=== PATIENT | female | born 1965 | race African-American/Black ===

== ENCOUNTER 2016-03-20 13:52 | Emergency (ER) | payer BC, MEDICARE ==
[2016-03-20 14:01] VITALS: TEMP 102.8; BMI 36.7
--- NOTE | 2016-03-20 14:16 | EDPRACDOC ---
<Leigh Dee Henry - Last Filed: 03/20/16 16:46> - General Information Information Source: Patient Mode Of Arrival: Car - History of Present Illness HPI: FEVER, BODY ACHES, MALAISE, HEADACHE, THINKS ALLERGIC REACTION TO TETANUS/ DIPTHERIA SHOT IN RIGHT ARM YESTERDAY. SIMILAR BUT NOT BAD REACTION IN 2007. PT HAS H/O CROHN'S, CHRONIC ABD PAIN. NO NEW PAIN. + N/V. Exposure occurred: this am <Juan Chacko - Last Filed: 03/21/16 07:26> - General Information Chief Complaint: Allergic Reaction Stated Complaint: ALLERGIC REACTION TO MED Time Seen by Provider: 03/20/16 14:03 Home Medications: Home Medications CYANOCOBALAMIN (Vitamin B-12) [Vitamin B-12 (cyanocobalamin)] 1,000 mcg IJ .PRN PRN 07/09/12 Mesalamine [Pentasa] 1,000 mg PO QID 07/09/12 Metformin HCl [Metformin HCl ER] 500 mg PO BID 07/09/12 Promethazine [Phenergan] 25 mg PO DAILY 07/09/12 Rosuvastatin Calcium [Crestor] 10 mg PO DAILY 07/09/12 Amitriptyline HCl [Elavil] 25 mg PO HS 11/08/14 Cholecalciferol (Vitamin D3) [Vitamin D3] 1,000 unit PO DAILY 11/08/14 Fish Oil/Dha/Epa [Fish Oil 1,200 mg Fish Oil] 2 tab PO DAILY 11/08/14 Folic Acid/Vitamin B Comp W-C [Super B-Complex Folic-Vit C Tb] 400 mcg PO DAILY 11/08/14 Hydrochlorothiazide 25 mg PO DAILY 11/08/14 Hydrocodone Bit/Acetaminophen [[place] 5-325 Tablet] 1 each PO BID 11/08/14 Lorazepam [Ativan] 0.5 mg PO BID 11/08/14 Metoclopramide HCl [Reglan] 10 mg PO BID 11/08/14 Mouthwash [Magic Mouthwash] 5 ml PO QHS 11/08/14 Ondansetron [Zofran Odt] 8 mg PO DAILY 11/08/14 Pantoprazole Sodium [Protonix] 40 mg PO BID 11/08/14 Pediatric Multivit Comb #25/FA [[place] Multivit Chew Tab] 600 mcg PO DAILY 11/08/14 Phenobarb/Hyoscy/Atropine/Scop [ Elixir] 2 tsp PO DAILY 11/08/14 Phenylephrine HCl/[place] Butter [Preparation H Suppository] 1 each RC QHS Ranitidine HCl [Zantac] 300 mg PO QHS 11/08/14 Sucralfate [Carafate] 10 ml PO DAILY PRN 11/08/14 Ciprofloxacin HCl [Cipro] 500 mg PO BID #14 tab 11/17/14 Hydroxyzine Pamoate [Vistaril] 25 mg PO Q6 PRN #20 capsule 11/17/14 Ranitidine [Zantac] 150 mg PO BID #14 tablet 11/17/14 Oxycodone Immediate Release [Oxycodone Immediate Release (OxyIR)] 5 - 10 mg PO Q4H PRN #20 tab 03/20/16 Allergies/Adverse Reactions: Allergies Allergy/AdvReac Type Severity Reaction Status Date / Time aspirin AdvReac Unknown Unknown/See Verified 11/08/14 18:56 Comments esomeprazole magnesium AdvReac Unknown Unknown/See Verified 11/08/14 18:56 [From Nexium] Comments ibuprofen [From Advil] AdvReac Unknown Unknown/See Verified 11/08/14 18:56 Comments infliximab [From Remicade] AdvReac Unknown Unknown/See Verified 11/08/14 18:56 Comments lansoprazole [From Prevacid] AdvReac Unknown Unknown/See Verified 11/08/14 18:56 Comments meperidine HCl [From Demerol] AdvReac Unknown Hypotension Verified 11/08/14 18: 56 tetracycline [Tetracycline] AdvReac Unknown Rash-Genera Verified 11/08/14 18:56 lized tizanidine [Tizanidine] AdvReac Unknown Rash-Genera Verified 11/08/14 18:56 lized ED Past Medical History - History Reviewed Yes Nurses notes reviewed and agree except as marked - Patient Medical History Neurological History: Denies: Cerebrovascular Accident, Seizures, Dementia Cardiac History: Reports: Hypercholesterolemia. Denies: Coronary Artery Disease , Atrial Fibrillation, Hypertension, Congestive Heart Failure, Heart Attack, Cardiac Catheterization, CABG, Internal Defibrillator, Pacemaker Respiratory History: Denies: Asthma, COPD, Bronchitis, Asbestosis, Aspiration Pneumonia, Cough, Chronic Bronchitis, Pneumonia GI/ History: Reports: Gastroesophageal Reflux, IBD (crohns). Denies: Urinary Tract Infection, Kidney Stones, Liver Failure, Ulcer Musculoskeletal History: Denies: Arthritis Psychological History: Denies: Depression, Anxiety, Schizophrenia Systemic History: Reports: Diabetes. Denies: Cancer, Anemia, Hyperthyroidism, Hypothyroidism, HIV Surgical History: Reports: Appendectomy. Denies: CABG, Hysterectomy, Angioplasty, Cardiac Catheterization, Hernia Surgery, Other - Family Medical History Denies: Hypertension, Diabetes, Cancer, Stroke, Cardiac Disorders, Respiratory Disorders, Renal Disease, Blood Disorders - Social Medical History Smoking Status: Never smoker <Juan Chacko - Last Filed: 03/21/16 07:26> EDM Review of Systems - Review of Systems ROS Negative Except as Marked: Yes All systems reviewed and were negative except as marked <Juan Chacko - Last Filed: 03/21/16 07:26> - Physical Exam Last recorded Vital Signs: Last Vital Signs Temp 102.8 F H 03/20/16 13:58 Pulse 112 03/20/16 15:43 Resp 18 03/20/16 15:43 BP 142/70 03/20/16 15:43 Pulse Ox 96 03/20/16 15:43 Oxygen Pulse Oxygen Saturation 96 O2 Device Room Air Oxygen Flow Rate Fraction of Inspired Oxygen ( FIO2) <Leigh Dee - Last Filed: 03/20/16 16:46> - Physical Exam Constitutional: Alert (Awake), Other (APPEARS UNCOMFORTABLE.) Oriented to: Time, Person, Place Last recorded Vital Signs: Last Vital Signs Temp 102.8 F H 03/20/16 13:58 Pulse 144 H 03/20/16 13:58 Resp 22 03/20/16 13:58 BP 156/101 H 03/20/16 13:58 Pulse Ox 99 03/20/16 13:58 Oxygen Pulse Oxygen Saturation 99 O2 Device Room Air Oxygen Flow Rate Fraction of Inspired Oxygen ( FIO2) - HEENT Head: Normal ( normocephalic) Eye Exam: Normal (PERRL, EOMI, Sclera white) Oropharynx: Normal (Pharynx:Moist without exudate,Gums-no swelling) Nose: No Symptoms Reported (septum midline) Neck: Normal (FROM, trachea at midline) - Respiratory/Cardiovascular Respiratory: Normal - CTA (BBS clear to auscultation without adventitious sounds ) Cardiovascular: Normal (RRR without murmur, gallop or rub) - GI Auscultation: Normal (NABS) Palpation: Normal (Soft,No rebound or guarding, non distended) Tenderness: Diffuse, Mild Marroquin's Sign: Negative - Musculoskeletal Back: Normal (Non-Tender) Extremities: Normal (Normal tone, Pulses 2+ No cyanosis or edema, FROM) Musculoskeletal Comment: HYPERSENSITIVE TO TOUCH ALL OVER BODY. - Integumentary Skin: Normal, Warm, Dry Lymphatics: Normal (no adenopathy) - Neurologic Memory Impaired: Normal Motor Function: Normal (Normal tone, Pulses 2+ No cyanosis or edema, FROM) Cranial Nerve: Normal (CN II-X11 intact sensation, strength 5/5) Cerebellar: Normal Mood Description: Normal Perception: Normal <Juan Chacko - Last Filed: 03/21/16 07:26> - Re-evaluation Re-evaluation 3 Re-evaluation Time: 16:46 AMBULATING EASILY. GENERALIZED / NON FOCAL PAIN General: Pleasant FEMALE, No acute distress. Neuro: Alert Oriented, calm and cooperative HEENT: Normocephalic atraumatic. Sclerae nonicteric. Extraocular movements intact. Oral mucosa pink and moist. Neck: Supple. Nontender. Good range of motion. No masses. Trachea is midline. No cervical adenopathy. Lungs: Clear to auscultation. No rhonchi or wheezing. Heart: Regular rate and rhythm. No murmur. Abdomen: Soft, nontender, nondistended. No hepatosplenomegaly. No abdominal wall defects or masses. No guarding or rebound. Extremities: no cyanosis clubbing or edema. No palpable deformities. Skin: Warm and dry, no rashes FEVER AND LACTIC ACID ELEVATED, BUT NO REAL SOURCE OF INFECTION OR SEPSIS. OUTPT CARE WARRANTED. PT HAS H/O CHRONIC PAIN, ON VICODIN AND VALIUM CHRONICALLY. WILL ADD OXY FOR SHORT PERIOD. I SUSPECT PT HAS VIRAL SYNDROME THAT IS PREVALENT IN THE COMMUNITY. - Results 03/20/16 14:20 03/20/16 14:20 WBC 10.7 xk/uL (3.8-10.8) 03/20/16 14:20 RBC 4.94 xM/uL (4.20-5.40) 03/20/16 14:20 Hgb 12.8 g/dL (12.0-16.0) 03/20/16 14:20 Hct 39.7 % (36-47) 03/20/16 14:20 MCV 80 fL (81-99) L 03/20/16 14:20 MCH 26.0 pg (27-32) L 03/20/16 14:20 MCHC 32.3 g/dl (33-36) L 03/20/16 14:20 RDW 15.2 % (11.5-14.5) H 03/20/16 14:20 Plt Count 258 xk/uL (130-400) 03/20/16 14:20 MPV 7.6 fL (7.4-10.4) 03/20/16 14:20 Neut % (Auto) 75.1 % (45-76) 03/20/16 14:20 Lymph % (Auto) 15.9 % (17-44) L 03/20/16 14:20 [place] % (Auto) 7.5 % (3-10) 03/20/16 14:20 Eos % (Auto) 0.9 % (0-5) 03/20/16 14:20 Baso % (Auto) 0.6 % (0-2) 03/20/16 14:20 Absolute Neuts (auto) 8.03 xk/uL (1.7-8.2) 03/20/16 14:20 Absolute Lymphs (auto) 1.61 xk/uL (0.65-4.75) 03/20/16 14:20 Sodium 142 mEq/L (137-146) 03/20/16 14:20 Potassium 3.4 mEq/L (3.5-5.1) L 03/20/16 14:20 Chloride 96 mEq/L (98-107) L 03/20/16 14:20 Carbon Dioxide 28 mMOL/L (22-33) 03/20/16 14:20 Anion Gap 21 mEq/L (8-16) H 03/20/16 14:20 BUN 11 MG/DL (7-17) 03/20/16 14:20 Creatinine 1.00 MG/DL (0.52-1.04) 03/20/16 14:20 Estimated GFR (MDRD) > 60 mL/min (>=60) 03/20/16 14:20 Glucose 118 MG/DL (70-99) H 03/20/16 14:20 Calculated Osmolality 273 MOs/Kg (270-290) 03/20/16 14:20 Lactic Acid 3.2 mEq/L (0.7-2.1) H 03/20/16 14:20 Calcium 10.0 MG/DL (8.4-10.2) 03/20/16 14:20 Total Bilirubin 0.5 MG/DL (0.2-1.3) 03/20/16 14:20 AST 40 IU/L (14-36) H 03/20/16 14:20 ALT 52 IU/L (9-52) 03/20/16 14:20 Alkaline Phosphatase 78 IU/L (38-126) 03/20/16 14:20 Total Protein 9.2 G/DL (6.3-8.2) H 03/20/16 14:20 Albumin 5.1 G/DL (3.5-5.0) H 03/20/16 14:20 Microbiology 03/20/16 14:20 Influenza Type A Antigen Screen - Final Nasal Washing/Aspirate Or Swab NEGATIVE Please note: A NEGATIVE result does not exclude an influenza virus infection. It is a presumptive result and, if required, confirmation should be done using either a virus culture or an FDA-cleared influenza A&B molecular assay. ("NORMAL" value = "NEGATIVE".) Influenza Type B Antigen Screen - Final NEGATIVE Please note: A NEGATIVE result does not exclude an influenza virus infection. It is a presumptive result and, if required, confirmation should be done using either a virus culture or an FDA-cleared influenza A&B molecular assay. ("NORMAL" value = "NEGATIVE".) 03/20/16 14:20 Group A Streptococcus Rapid Screen - Final Throat - Rapid Strep NEGATIVE ("NORMAL" value = "NEGATIVE".) Lab Results 03/20/16 03/20/16 03/20/16 14:20 14:20 14:20 WBC 10.7 RBC 4.94 Hgb 12.8 Hct 39.7 MCV 80 L MCH 26.0 L MCHC 32.3 L RDW 15.2 H Plt Count 258 MPV 7.6 Neut % (Auto) 75.1 Lymph % (Auto) 15.9 L [place] % (Auto) 7.5 Eos % (Auto) 0.9 Baso % (Auto) 0.6 Absolute Neuts (auto) 8.03 Absolute Lymphs (auto) 1.61 Sodium 142 Potassium 3.4 L Chloride 96 L Carbon Dioxide 28 Anion Gap 21 H BUN 11 Creatinine 1.00 Estimated GFR (MDRD) > 60 Glucose 118 H Calculated Osmolality 273 Lactic Acid 3.2 H Calcium 10.0 Total Bilirubin 0.5 AST 40 H ALT 52 Alkaline Phosphatase 78 Total Protein 9.2 H Albumin 5.1 H - Diagnostic Imaging Chest Image interpreted by: Radiologist Patient Name: JOSÉ MIGUEL MARCELO LOC: ED : 1965 AGE: 50 Order Date:03/20/16 Date of Service:09/27 Report # [id number] Ord Physician: Juan Chacko DO Exam # [id number] Emergency Physician: Juan Chacko DO Exam(s): [id number] RAD/DG CHEST 2V CLINICAL DATA: Fever and body aches EXAM: CHEST 2 VIEW COMPARISON: 02/23/2010 FINDINGS: The heart size is normal. There is no pleural effusion or edema identified. No airspace consolidation identified. The lung volumes appear low. IMPRESSION: 1. Low lung volumes. 2. No pneumonia. Electronically Signed By: Astrid Abdi M.D. On: 03/20/2016 14:51 Electronically Signed By: Astrid Abdi MD Electronically Signed Date/Time: 454 Dictate Date/Time: 03/20/16 1449 Technologist: Janet Rojas Transcribed By: Tamera Transcribed Date/Time: 03/20/16 1451 <Leigh Dee - Last Filed: 03/20/16 16:46> - Results 03/20/16 14:20 03/20/16 14:20 <Juan Chacko - Last Filed: 03/21/16 07:26> - Departure Disposition: Home Education/Counseling Given To: Patient, Family Member Education/Counseling Given Regarding: Diagnosis, Treatment, Prognosis <Leigh Dee - Last Filed: 03/20/16 16:46> <Juan Chacko - Last Filed: 03/21/16 07:26> - Departure Condition: Stable Final Diagnosis: Viral syndrome Instructions: Viral Syndrome, Viral Syndrome (ED) Referrals: Elise Bobo PA [Primary Care Provider] - One Week Prescriptions: Oxycodone Immediate Release [Oxycodone Immediate Release (OxyIR)] 5 - 10 mg PO Q4H PRN #20 tab PRN Reason: Pain Additional Instructions: RETURN TO THE EMERGENCY DEPARTMENT FOR UNCONTROLLED PAIN, PAIN IN 1 SPECIFIC AREA OR ANY QUESTIONS WHATSOEVER. USE TYLENOL TO KEEP HER FEVER DOWN.
[2016-03-20] MEDS ORDERED: ACETAMINOPHEN 325 MG/TAB TABLET PO ONE (14:29)
[2016-03-20] MEDS ORDERED: ONDANSETRON HCL 4 MG/2 ML VIAL IV ONE (14:29)
[2016-03-20 14:32] LABS: AUTOMATED BASOPHIL 0.6 % (0-2); AUTOMATED EOSINOPHIL 0.9 % (0-5); AUTOMATED LYMPH 15.9 % (17-44); AUTOMATED MONOCYTE 7.5 % (3-10); AUTOMATED NEUTROPHIL 75.1 % (45-76); MPV 7.6 fL (7.4-10.4)
[2016-03-20] MEDS ORDERED: NS 1,000 ML IV ONE ×2 (14:41→15:57)
[2016-03-20 14:44] LABS: BLOOD UREA NITROGEN 11 MG/DL (7-17); CALCULATED OSMOLALITY 273 MOs/Kg (270-290); CHLORIDE 96 mEq/L (98-107); GLUCOSE 118 MG/DL (70-99); SODIUM LEVEL 142 mEq/L (137-146)
[2016-03-20 14:45] LABS: TOTAL PROTEIN 9.2 G/DL (6.3-8.2)
--- NOTE | 2016-03-20 14:54 | DIRPT ---
CLINICAL DATA: Fever and body aches EXAM: CHEST 2 VIEW COMPARISON: 02/23/2010 FINDINGS: The heart size is normal. There is no pleural effusion or edema identified. No airspace consolidation identified. The lung volumes appear low. IMPRESSION: 1. Low lung volumes. 2. No pneumonia. Electronically Signed By: Astrid Abdi M.D. On: 03/20/2016 14:51
[2016-03-20 16:06] LABS: LEUKOCYTES/URINE NEG (NEGATIVE); NITRITE/URINE NEG (NEGATIVE); URINE OCCULT BLOOD NEG (NEG/TRACE)
[2016-03-20] MEDS ORDERED: OXYCODONE HCL 5 MG TABLET PO ONE (16:51)
[2016-03-20 17:24] VITALS: BP 135/75; PULSE 120
== END 2016-03-20 17:24 | disposition home or self-care (01) ==
LOC: ED 13:52
DX: B34.9 Viral infection, unspecified (principal); E78.00 Pure hypercholesterolemia, unspecified; E11.9 Type 2 diabetes mellitus without complications; K21.9 Gastro-esophageal reflux disease without esophagitis; K50.90 Crohn's disease, unspecified, without complications; Z79.899 Other long term (current) drug therapy
CPT/HCPCS: 36415; 71020; 80053; 81001; 83605; 85025; 87040; 87086; 87804; 87880; 96361; 96374; 99284; A9270; J2405; J3490